=== PATIENT | male | born 1995 | race Caucasian/White ===

== ENCOUNTER 2017-02-12 08:25 | Emergency (ER) | payer OTHER ==
[~2017-02-12] VITALS: Ht 182.9 cm; Wt 80.1 kg
[2017-02-12] MEDS ORDERED: ADACEL/BOOSTRIX VACCINE (DIPHTH/PERTUSS/ACELL/TETANUS)0.5ML SYR (90715) IM ONE (08:45)
[2017-02-12] MEDS ORDERED: NS 1,000 ML IV ONE (08:45)
[2017-02-12] MEDS ORDERED: MORPHINE 4 MG/ML 1ML SYRINGE IV ONE (08:45)
[2017-02-12 08:58] LABS: BASO % 0.2 % (0.0-1.0); EOS # 0.1 K/mm3 (0.0-0.50); LARGE UNSTAINED CELL # 0.1 K/mm3 (0.0-0.4); LARGE UNSTAINED CELL % 0.9 % (0.0-4.0); LYMPH # 1.4 K/mm3 (1.5-6.5); LYMPH % 16.4 % (24.0-44.0); MEAN CORPUSCULAR HEMOGLOBIN 29.9 pg (27.0-33.0); MEAN CORPUSCULAR HGB CONC 35.2 g/dl (32.0-36.5); MONO # 0.5 K/mm3 (0.0-0.8); MONO % 5.9 % (0.0-5.0); NEUTROPHILS # 6.1 K/mm3 (1.8-7.7); NEUTROPHILS % 75.5 % (36.0-66.0); PLATELET COUNT, AUTOMATED 258 k/mm3 (150-450); RED CELL DISTRIBUTION WIDTH 12.7 % (11.5-14.5); WHITE BLOOD COUNT 8.1 K/mm3 (4.0-10.0)
--- NOTE | 2017-02-12 09:20 | REP ---
CT Head without contrast HISTORY: Trauma COMPARISON: 10/09/2014 There is no intraparenchymal hemorrhage, acute infarct, mass or midline shift. The ventricular system is normal in appearance. There is no extra cerebral collection. There is no fracture. The visualized sinuses are clear. IMPRESSION: There is no intracranial lesion. Signed by Cody Randolph MD 02/12/2017 09:11 A
--- NOTE | 2017-02-12 09:25 | REP ---
CT cervical spine without contrast HISTORY: Trauma COMPARISON: 10/09/2014 There is no acute fracture or subluxation. There is no disc bulge or herniation. The spinal canal and neural foramina are patent. The intervertebral discs and vertebral bodies are normal in height. IMPRESSION: There is no acute fracture or subluxation. Signed by Cody Randolph MD 02/12/2017 09:15 A
[2017-02-12 09:26] LABS: ANION GAP 4 MEQ/L (8-16); BLOOD UREA NITROGEN 15 MG/DL (7-18); CALCIUM LEVEL 9.5 MG/DL (8.5-10.1); CARBON DIOXIDE LEVEL 31 MEQ/L (21-32); CHLORIDE LEVEL 104 MEQ/L (98-107); CREATININE FOR GFR 0.94 MG/DL (0.70-1.30); GLUCOSE, FASTING 111 MG/DL (70-105); POTASSIUM SERUM 3.8 MEQ/L (3.5-5.1); SODIUM LEVEL 139 MEQ/L (136-145)
--- NOTE | 2017-02-12 10:14 | REP ---
PA and lateral chest: Comparison is 07/18/2005. There is no pneumothorax, hemothorax or pulmonary contusion. Lung voss are clear. Cardiac size is normal. The krista, mediastinum, and bony thorax are unremarkable. Impression: Negative PA and lateral chest. Signed by Dwaine Hobbs MD 02/12/2017 10:06 A
--- NOTE | 2017-02-12 10:16 | REP ---
Bilateral ankles: Right ankle four views : There is no fracture or dislocation. Mineralization and joint spaces are normal. There are no calcifications or foreign bodies. Impression: Negative right ankle Left ankle four views : There is no fracture or dislocation. Mineralization and joint spaces are normal. There are no calcifications or foreign bodies. Impression: Negative left ankle . Signed by Dwaine Hobbs MD 02/12/2017 10:08 A
--- NOTE | 2017-02-12 10:20 | REP ---
Bilateral tibia-fibula: Right tibia-fibula four views : There is no fracture or dislocation. Mineralization and joint spaces are normal. There are no calcifications or foreign bodies. Impression: Negative right tibia-fibula . Left tibia-fibula four views : There is no fracture or dislocation. Mineralization and joint spaces are normal. There are no calcifications or foreign bodies. Impression: Negative left tibia-fibula . Signed by Dwaine Hobbs MD 02/12/2017 10:11 A
--- NOTE | 2017-02-12 10:24 | REP ---
Bilateral knees: Right knee four views : There is no fracture or dislocation. Mineralization and joint spaces are normal. There are no calcifications or foreign bodies. Impression: Negative right knee . Left knee four views : There is no fracture or dislocation. Mineralization and joint spaces are normal. There are no calcifications or foreign bodies. Impression: Negative left knee . Signed by Dwaine Hobbs MD 02/12/2017 10:16 A
--- NOTE | 2017-02-12 10:24 | REP ---
Bilateral feet: Right foot four views : There is no fracture or dislocation. Mineralization and joint spaces are normal. There are no calcifications or foreign bodies. Impression: Negative right foot Left foot four views : There is no fracture or dislocation. Mineralization and joint spaces are normal. There are no calcifications or foreign bodies. Impression: Negative left foot . Signed by Dwaine Hobbs MD 02/12/2017 10:16 A
[2017-02-12 12:45] VITALS: BP 115/55
== END 2017-02-12 13:08 | disposition home or self-care (01) ==
LOC: EDBD 08:25 → M ED 08:25
DX: S09.8XXA Other specified injuries of head, initial encounter (principal); S00.81XA Abrasion of other part of head, initial encounter; V86.09XA Driver of other special all-terrain or other off-road motor vehicle injured in traffic accident, initial encounter; Y92.410 Unspecified street and highway as the place of occurrence of the external cause; Y93.89 Activity, other specified; Y99.9 Unspecified external cause status

== ENCOUNTER → 2017-02-18 | Outpatient (CLI) | payer OTHER ==
--- NOTE | 2017-02-18 13:12 | REP ---
Left fingers, four views: There is an avulsion fracture of the distal tuft of the index finger. Mineralization joint spaces otherwise are normal. There are no calcifications or foreign bodies. Signed by Dwaine Hobbs MD 02/18/2017 01:04 P
== END ==
LOC: M WUC 12:15
PROVIDERS: ATTEND Physician Assistant
DX: S62.631A Displaced fracture of distal phalanx of left index finger, initial encounter for closed fracture (principal); X58.XXXA Exposure to other specified factors, initial encounter; Y92.9 Unspecified place or not applicable; Y93.9 Activity, unspecified; Y99.8 Other external cause status

== ENCOUNTER → 2018-12-28 | Outpatient (CLI) | payer OTHER ==
--- NOTE | 2018-12-28 17:14 | REP ---
Right ankle four views : There is no fracture or dislocation. Mineralization and joint spaces are normal. There are no calcifications or foreign bodies. Impression: Negative right ankle . Electronically Signed by Dwaine Hobbs MD 12/28/2018 05:05 P
== END ==
LOC: M WUC 16:32
PROVIDERS: ATTEND Physician Assistant
DX: M25.571 Pain in right ankle and joints of right foot (principal)

== ENCOUNTER → 2019-09-11 | Outpatient (REF) | payer OTHER ==
[2019-09-12 12:29] LABS: CHLAMYDIA DNA AMPLIFICATION NEGATIVE (NEGATIVE); GC DNA AMPLIFICATION NEGATIVE (NEGATIVE)
== END ==
LOC: M LAB REF 09:35
PROVIDERS: ATTEND Physician Assistant
DX: Z11.3 Encounter for screening for infections with a predominantly sexual mode of transmission (principal)

== ENCOUNTER → 2019-09-12 | Outpatient (CLI) | payer OTHER ==
[2019-09-13 10:31] LABS: HEPATITIS A ANTIBODY IGM NEGATIVE (NEGATIVE); HEPATITIS B CORE ANTIBODY IGM NEGATIVE (NEGATIVE); HEPATITIS B SURFACE ANTIGEN NEGATIVE (NEGATIVE); HEPATITIS C VIRUS ABY INDEX < 0.0 INDEX (<0.8); HIV 1&2 SCREEN CENTAUR NEGATIVE (NEGATIVE)
== END ==
LOC: M WUC 16:09
PROVIDERS: ATTEND Physician Assistant
DX: Z11.3 Encounter for screening for infections with a predominantly sexual mode of transmission (principal)

== ENCOUNTER 2020-02-21 19:13 | Emergency (ER) | payer OTHER | END 2020-02-21 23:00 | disposition home or self-care (01) | LOC: M ED 19:13 | DX: S99.911A Unspecified injury of right ankle, initial encounter (principal); W19.XXXA Unspecified fall, initial encounter; Y92.73 Farm field as the place of occurrence of the external cause; Y93.9 Activity, unspecified; Y99.9 Unspecified external cause status; M25.771 Osteophyte, right ankle ==

== ENCOUNTER → 2020-09-05 | Outpatient (CLI) | payer OTHER ==
--- NOTE | 2020-09-05 11:30 | REP ---
INDICATION: STRAIN MUSC/TEND POST GRP AT LOW LEG LEVEL, RIGHT LEG, SUBS. COMPARISON: MRI 07/29/2020. TECHNIQUE: Real-time sonographic evaluation of right lower calf performed at the site of a palpable lump. FINDINGS: A hypoechoic soft tissue nodule is seen at the site of the palpable lump. It measures 1.1 x 0.5 x 0.7 cm. There is internal arterial flow with duplex Doppler evaluation. IMPRESSION: Nonspecific hypoechoic soft tissue nodule at the site of the palpable lump measuring 1.1 x 0.5 x 0.7 cm. There is internal arterial flow. <Electronically signed by Dwaine Perez > 09/05/20 [id number]
== END ==
LOC: M RAD 09:02
PROVIDERS: ATTEND Physician Assistant
DX: S86.111D Strain of other muscle(s) and tendon(s) of posterior muscle group at lower leg level, right leg, subsequent encounter (principal); X58.XXXA Exposure to other specified factors, initial encounter; Y92.9 Unspecified place or not applicable; Y93.9 Activity, unspecified; Y99.9 Unspecified external cause status

== ENCOUNTER → 2022-09-14 | Outpatient (REF) | payer BC, OTHER ==
[2022-09-14 16:51] LABS: HIV 1&2 SCREEN CENTAUR NEGATIVE (NEGATIVE)
[2022-09-14 16:58] LABS: HEPATITIS C VIRUS ABY INDEX < 0.0 INDEX (<0.8)
== END ==
LOC: M LAB REF 12:09
PROVIDERS: ATTEND Nurse Practitioner Family
DX: Z11.9 Encounter for screening for infectious and parasitic diseases, unspecified (principal)

== ENCOUNTER 2023-11-16 20:01 | Emergency (ER) | payer BC ==
[~2023-11-16] VITALS: Ht 180.3 cm; Wt 94.4 kg
[2023-11-16 21:30] VITALS: O2SAT 97
[2023-11-16] MEDS: TETRACAINE 0.5% OPHTH SOLN 4ML OD ONE (23:04)
[2023-11-16] MEDS: FLUORESCEIN OPHTH 1MG STRIP OD ONE (23:04)
[2023-11-16] MEDS ORDERED: ERYTOIN8 OP (23:24)
[2023-11-16] MEDS: ERYTHROMYCIN OPHTH OINT OD ONE (23:30)
[2023-11-16 23:34] VITALS: BP 132/80; TEMP 98.7
== END 2023-11-16 23:37 | disposition home or self-care (01) ==
LOC: M ED 20:01
DX: S05.01XA Injury of conjunctiva and corneal abrasion without foreign body, right eye, initial encounter (principal); X58.XXXA Exposure to other specified factors, initial encounter; Y92.009 Unspecified place in unspecified non-institutional (private) residence as the place of occurrence of the external cause; Y93.89 Activity, other specified; Y99.9 Unspecified external cause status